=== PATIENT | female | born 1985 | race Caucasian/White ===

== ENCOUNTER → 2018-06-28 | Outpatient (CLI) | payer OTHER ==
--- NOTE | 2018-06-28 16:51 | RAD ---
3 view study of the right knee Clinical indications: Right knee pain. FINDINGS: There is severe joint space narrowing and prominent spurring and subchondral sclerosis of the medial tibial femoral joint compartment. There is mild spurring and joint space narrowing of the lateral tibiofemoral joint compartment. There is mild spurring of the patellar femoral joint compartment. Patella is normally aligned. No acute fracture or dislocation or osteolytic process is seen. 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 Electronically signed by: Jomar Hart MD (06/28/2018 4:47 PM) [id number]
== END | disposition home or self-care (01) ==
LOC: DXRAD 13:23
PROVIDERS: ATTEND Orthopaedic Surgery Sports Medicine
DX: M17.11 Unilateral primary osteoarthritis, right knee (principal)
CPT/HCPCS: 73562